=== PATIENT | male | born 1935 | race Caucasian/White ===

== ENCOUNTER 2020-03-11 16:01 | Outpatient (CLI) | payer MEDICARE, MEDICAID ==
[2020-03-12 13:17] LABS: AFP, TUMOR MARKER <0.9 ng/mL (0.0-8.3)
[2020-03-13 05:08] LABS: CARBOHYDRATE AG 19-9 176 U/mL (0-35)
== END 2020-03-11 23:59 | disposition home or self-care (01) ==
LOC: CL 16:01
PROVIDERS: ATTEND Internal Medicine Hematology & Oncology
DX: Z45.2 Encounter for adjustment and management of vascular access device (principal); C78.5 Secondary malignant neoplasm of large intestine and rectum
CPT/HCPCS: 36415; 82105; 82378; 86301